=== PATIENT | male | born 1975 | race American Indian/Alaskan Native ===

== ENCOUNTER 2016-12-23 03:04 | Emergency (ER) | payer SELFPAY ==
[2016-12-23] MEDS ORDERED: DELTASONE PO ONE (07:43)
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
[2016-12-23 09:25] VITALS: BP 134/92
== END 2016-12-23 09:23 | disposition home or self-care (01) ==
LOC: ED 03:04
DX: L03.115 Cellulitis of right lower limb (principal); L30.9 Dermatitis, unspecified; F17.210 Nicotine dependence, cigarettes, uncomplicated
CPT/HCPCS: 82962; 99283; J7512

== ENCOUNTER 2017-07-28 09:01 | Inpatient (IN) | payer OTHER ==
[2017-07-28 10:03] LABS: Basophils # (Auto) 0.1 K/mm3 (0.0-0.1); Basophils % (Auto) 0.9 % (0.0-1.8); Eosinophils # (Auto) 0.2 K/mm3 (0.0-0.4); Eosinophils % (Auto) 2.6 % (0.0-4.3); Hematocrit 48.1 % (35.5-45.6); Hemoglobin 16.2 gm/dl (11.8-15.2); Lymphocytes # (Auto) 2.3 K/mm3 (1.2-5.4); Lymphocytes % (Auto) 27.6 % (13.4-35.0); Mean Corpuscular HGB Conc 34 % (32-34); Mean Corpuscular Hemoglobin 30 pg (28-32); Mean Corpuscular Volume 89 fl (84-94); Monocytes # (Auto) 0.6 K/mm3 (0.0-0.8); Monocytes % (Auto) 6.7 % (0.0-7.3); Platelet Count 258 K/mm3 (140-440); Red Cell Distribution Width 14.3 % (13.2-15.2)
[2017-07-28 10:11] LABS: BUN/Creatinine Ratio 16; Blood Urea Nitrogen 16 mg/dL (9-20); Calcium 9.6 mg/dL (8.4-10.2); Hemolysis Index 52
[2017-07-28] MEDS ORDERED: NITRO-BID 2% TP ONE (10:25)
[2017-07-28] MEDS ORDERED: ASPIRIN PO ONE (10:25)
[2017-07-28] MEDS ORDERED: HABITROL TD ONE (10:29)
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
--- NOTE | 2017-07-28 11:20 | XRay Report ---
CHEST 2 VIEWS INDICATION: Shortness of breath. COMPARISON: 02/15/2015 FINDINGS: Frontal and lateral chest radiographs demonstrate right mid to lower lung scarring/atelectasis slightly more prominent. Otherwise stable inspiration with mild exaggerated cardiomediastinal silhouette. No pleural effusions or CHF. Intact bones. CONCLUSION: No significant acute chest process, as described. Thank you for the opportunity to participate in this patient's care.
[2017-07-28] MEDS ORDERED: NITROSTAT SL PRN (15:46)
[2017-07-28] MEDS ORDERED: MORPHINE IV PRN (15:46)
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
[2017-07-28 18:39] LABS: Creatine Kinase MB 2.9 ng/mL (0.0-4.0)
[2017-07-28] MEDS ORDERED: TYLENOL PO PRN (18:44)
[2017-07-28 18:54] LABS: Amphetamine Screen,Urine PRESUMPTIVE NEGATIVE; Benzodiazepines Screen,Urine PRESUMPTIVE NEGATIVE; Cannabinoid Screen,Urine PRESUMPTIVE NEGATIVE; Cocaine Screen,Urine PRESUMPTIVE NEGATIVE; Methadone Screen,Urine PRESUMPTIVE NEGATIVE; Opiate Screen,Urine PRESUMPTIVE NEGATIVE
[2017-07-28 19:18] LABS: Chol/HDL Ratio 5.27 %
[2017-07-28] MEDS: COREG PO SCH (21:48)
[2017-07-28] MEDS: PEPCID PO SCH (21:48)
[2017-07-29 00:52] LABS: Creatine Kinase MB 1.8 ng/mL (0.0-4.0)
[2017-07-29] MEDS ORDERED: LEXISCAN IV ONE ×2 (08:08→08:14)
[2017-07-29] MEDS ORDERED: ZESTRIL PO SCH (10:00)
[2017-07-29] MEDS ORDERED: ASPIRIN PO SCH (10:00)
[2017-07-29] MEDS ORDERED: HABITROL TD SCH (10:00)
[2017-07-29 12:12] VITALS: BP 136/92
[2017-07-29] MEDS: PEPCID PO SCH (12:47)
[2017-07-29] MEDS: COREG PO SCH (12:47)
--- NOTE | 2017-07-29 14:56 | Discharge Summary ---
Providers - Providers Date of Admission: 07/28/17 10:35 Date of discharge: 07/29/17 Attending physician: CHRISTIAN RUCKER Primary care physician: SENIOR TELECOMMUNICATIONS TECHNICIAN Hospitalization Reason for admission: chest pain Condition: Fair Pertinent studies: Stress test negative for reversible ischemia Ejection fraction 40-45% Chest x-ray no acute abnormality noted Hospital course: 38-year-old morbidly obese male patient with significant past medical history of lymphoma status post chemotherapy and now in remission ongoing tobacco use, was admitted through emergency room with chest pain Patient was symptomatically managed, serial cardiac enzymes were negative Stress test was negative for reversible ischemia, ejection fraction 40-45% Smoking cessation counseling done, as well as nicotine patch Symptoms significantly improved Today's comfortably in bed, No new complaints Quick signs stable, physical examination prior to discharge is unremarkable Hemodynamically and clinically stable for discharge Smoking cessation counseling done Diet modification and exercise as tolerated and weight reduction counseling done Patient also counseled to be compliaent with medications and doctors visits Discharge diagnosis; --Atypical chest pain; noncardiac; negative stress test --Gastroesophageal reflux disease --Hypertension --Dyslipidemia --Ongoing tobacco use --Obesity with BMI of 35.0 Disposition: DC-01 TO HOME OR SELFCARE Time spent for discharge: 31 min Core Measure Documentation - Palliative Care Palliative Care/ Comfort Measures: Not Applicable - Core Measures Any of the following diagnoses?: none Exam - Constitutional Vitals: Temp Pulse Resp BP Pulse Ox 97.8 F 96 H 20 136/92 98 07/29/17 04:33 07/29/17 09:53 07/29/17 04:33 07/29/17 09:53 07/29/17 04:33 General appearance: Present: no acute distress, well-nourished - EENT Eyes: Present: PERRL, EOM intact - Neck Neck: Present: supple, normal ROM - Respiratory Respiratory effort: normal Respiratory: bilateral: diminished, negative: rales, rhonchi, wheezing - Cardiovascular Rhythm: regular Heart Sounds: Present: S1 & S2 - Extremities Extremities: no ischemia, No edema Peripheral Pulses: within normal limits - Abdominal General gastrointestinal: Present: soft, non-tender, non-distended, normal bowel sounds - Integumentary Integumentary: Present: clear, warm - Musculoskeletal Musculoskeletal: strength equal bilaterally - Psychiatric Psychiatric: appropriate mood/affect, cooperative - Neurologic Neurologic: CNII-XII intact, moves all extremities Plan Activity: no restrictions Diet: other (cardiac diet) Special Instructions: smoking cessation Additional Instructions: Exercise as tolerated and weight reduction. Smoking cessation counseling. Low-cholesterol and low-sodium diet. If you have chest pain or shortness of breath contact M.D. or go to emergency room Follow up with: PRIMARY CARE, [Primary Care Provider] - 7 Days DAMIAN LILLY MD [Staff Physician] - 7 Days Prescriptions: AtorvaSTATin [Lipitor] 40 mg PO QHS #30 tablet Carvedilol [Coreg] 3.125 mg PO BID #60 tablet Nicotine [Habitrol] 14 mg TD QDAY #30 patch
--- NOTE | 2017-07-31 11:41 | Nuclear Perfusion Study ---
IV Lexiscan nuclear myocardial perfusion imaging test The patient is a 42-year-old -[place] gentleman for evaluation of chest pain. Baseline EKG showed sinus rhythm with underlying right bundle branch block. The patient received 0.4 mg of IV Lexiscan without any symptoms. EKG did not show any changes from baseline. Resting images followed by post-vasodilation nuclear images were obtained using technetium pyrophosphate injection, 10 microcuriewere injected at rest and 28 microcuriewere injected post-vasodilation. Perfusion imaging showed normal perfusion in all the segments post- vasodilation. Left ventricle appears to be dilated with end diastolic volume of 186 mL. Gated post-stress images showed ejection fraction to be 40% with diffuse mild hypokinesis. Transient ischemic dilation ratio was found to be 0.94. FINAL IMPRESSION: Dilated left ventricle with mild diffuse hypokinesis. Ejection fraction post-vasodilation was calculated to be 40%. Myocardial perfusion imaging showed uniform perfusion with no significant defects noted. No significant ischemia noted. The patient tolerated the procedure well. [facility]
== END 2017-07-29 16:46 | disposition home or self-care (01) | DRG 313 ==
LOC: ED 09:01 → 4A 10:35
PROVIDERS: ADMIT Internal Medicine; ATTEND Internal Medicine
DX: R07.89 Other chest pain (principal); E66.01 Morbid (severe) obesity due to excess calories; Z68.35 Body mass index [BMI] 35.0-35.9, adult; K21.9 Gastro-esophageal reflux disease without esophagitis; E78.5 Hyperlipidemia, unspecified; I10 Essential (primary) hypertension; F17.200 Nicotine dependence, unspecified, uncomplicated; Z83.3 Family history of diabetes mellitus; Z82.49 Family history of ischemic heart disease and other diseases of the circulatory system; Z71.6 Tobacco abuse counseling
CPT/HCPCS: 36415; 71046; 78452; 80048; 80061; 80307; 82550; 82553; 84484; 85025; 93005; 93010; 93017; 93306; A9270-GY; A9502; J2270; J2785